=== PATIENT | female | born 1985 | race Caucasian/White ===

== ENCOUNTER 2021-11-17 17:17 | Emergency (ER) | payer BC ==
[~2021-11-17] VITALS: Ht 157.5 cm; Wt 77.3 kg
[2021-11-17 17:24] VITALS: BP 113/76
--- NOTE | 2021-11-17 17:37 | NUR ---
PT AMBULATED TO BED 2
--- NOTE | 2021-11-17 17:42 | NUR ---
36 Y/O FEMALE BIB SELF DUE TO L SIDED RIB/SIDE PAIN S/P FALL THAT OCCURED 11/10/21. PT DENIES HITTING HEAD. PT IS ABLE TO SPEAK IN FULL SENTENCES. PT DENIES CHEST PAIN, SOB. PMH: DENIES NKA
--- NOTE | 2021-11-17 17:54 | NUR ---
XR AT PT BEDSIDE
[2021-11-17] MEDS ORDERED: NAPR-54 PO (18:32)
[2021-11-17 18:44] VITALS: BP 113/76
--- NOTE | 2021-11-17 18:44 | NUR ---
Patient discharged with v/s stable. Written and verbal after care instructions given and explained. Patient alert, oriented and verbalized understanding of instructions. Ambulatory with steady gait. All questions addressed prior to discharge. ID band removed. Patient advised to follow up with PMD. Rx of NPAROXEN given. Patient educated on indication of medication including possible reaction and side effects. Opportunity to ask questions provided and answered.
== END 2021-11-17 18:44 | disposition home or self-care (01) ==
LOC: MED 17:17
DX: S20.212A Contusion of left front wall of thorax, initial encounter (principal); Z79.1 Long term (current) use of non-steroidal anti-inflammatories (NSAID); X58.XXXA Exposure to other specified factors, initial encounter; Y93.01 Activity, walking, marching and hiking; Y92.89 Other specified places as the place of occurrence of the external cause; Y99.8 Other external cause status
CPT/HCPCS: 71101; 99283; Q0092

== ENCOUNTER 2024-02-03 16:39 | Emergency (ER) | payer BC ==
[~2024-02-03] VITALS: Ht 157.5 cm; Wt 78.0 kg
[~2024-02-03 16:39] MED LIST: NAPR-337 PO
[2024-02-03 16:42] VITALS: BP 122/75; PULSE 91; RESP 17; TEMP 97.8; O2SAT 100
[2024-02-03 17:31] LABS: BASOPHILS % (AUTO) 0.5 % (0.0-2.0); EOSINOPHILS # (AUTO) 0.2 K/uL (0-0.4); HEMATOCRIT 33.9 % (36-48); LYMPHOCYTES # (AUTO) 1.9 K/uL (2.5-16.5); LYMPHOCYTES % (AUTO) 23.3 % (20.5-51.1); MEAN CORPUSCULAR HEMOGLOBIN 23 pg (27-31); MEAN CORPUSCULAR HGB CONC 32 g/dL (33-37); MEAN CORPUSCULAR VOLUME 70.6 fL (80-94); MONOCYTES # (AUTO) 0.6 K/uL (0.8-1.0); MONOCYTES % (AUTO) 7.8 % (1.7-9.3); NEUTROPHILS # (AUTO) 5.5 K/uL (1.8-7.7); NEUTROPHILS % (AUTO) 66.4 % (42.2-75.2); PLATELET COUNT (AUTO) 360 K/uL (140-450); RED CELL DISTRIBUTION WIDTH 16.7 % (11.6-13.7); WHITE BLOOD COUNT (AUTO) 8.3 K/uL (4.8-10.8)
[2024-02-03 17:48] LABS: ANION GAP 10.6 (8-16); CALCIUM 9.2 mg/dL (8.5-10.1); CARBON DIOXIDE 29.3 mmol/L (21-32); CREATININE 0.7 mg/dL (0.6-1.3); POTASSIUM 3.9 mmol/L (3.5-5.1)
[2024-02-03 17:51] LABS: BILIRUBIN,URINE NEGATIVE (NEGATIVE); BLOOD, URINE 1+ (NEGATIVE); COLOR,URINE YELLOW (YELLOW); LEUKOCYTE ESTERASE ,URINE 1+ (NEGATIVE); NITRITE, URINE NEGATIVE (NEGATIVE); PH,URINE 6.5 (5.0-9.0); PROTEIN,URINE NEGATIVE (NEGATIVE); UGLUCOSE NEGATIVE (NEGATIVE); UROBILINOGEN,URINE 0.2 EU/dL (0.2 - 1)
[2024-02-03 17:53] LABS: ALBUMIN 3.7 g/dL (3.4-5.0); BILIRUBIN,DIRECT 0.1 mg/dL (0.0-0.3); TOTAL BILIRUBIN 0.3 mg/dL (0.0-1.0); TOTAL PROTEIN, SERUM 7.7 g/dL (6.4-8.2)
[2024-02-03 17:54] LABS: APPEARANCE,URINE HAZY (CLEAR)
[2024-02-03 17:56] LABS: BACTERIA,URINE 1+ /HPF (None Seen); MUCUS,URINE None Seen /LPF (None Seen); RBC,URINE 0-5 /HPF (0-5); SQUAMOUS EPITHELIAL CELL,UR 4-10 (MOD) /LPF (0-3 (FEW)); WBC,URINE 0-5 /HPF (0-5)
[2024-02-03 18:32] VITALS: BP 125/77; PULSE 88; RESP 16; TEMP 98; O2SAT 99
== END 2024-02-03 18:32 | disposition home or self-care (01) ==
LOC: MED 16:39
DX: R10.9 Unspecified abdominal pain (principal); R11.0 Nausea; Z90.49 Acquired absence of other specified parts of digestive tract; Z98.84 Bariatric surgery status; Z79.1 Long term (current) use of non-steroidal anti-inflammatories (NSAID)
CPT/HCPCS: 36415; 80048; 80076; 81001; 81025; 83690; 85025; 87086; 99283